=== PATIENT | female | born 1970 | race Caucasian/White ===

== ENCOUNTER 2016-08-30 16:07 | Observation (INO) | payer BC ==
[2016-08-30] MEDS ORDERED: Sodium Chloride 0.9% 10 ML Syringe FLUSH PRN (16:15)
[2016-08-30] MEDS ORDERED: Acetaminophen 325 MG Tab PO PRN (16:15)
--- NOTE | 2016-08-30 16:30 | PCM.HP ---
H&P History of Present Illness - General Date of Service: 08/30/16 Admit Problem/Dx: Admission Diagnosis/Problem Admission Diagnosis/Problem Anemia due to blood loss Symptomatic anemia due to heavy menses Dyspnea Hypotension Source of Information: Patient History Limitations: Reports: No limitations - History of Present Illness Initial Comments - Free Text/Narative: Patient presents to the clinic after having issues with her menses for the last two weeks. Sees a provider at [facility] who recently changed her BCP to Nortrel. Patient states since starting on the pills the periods have been heavy , changing a pad every 1 to 2 hours with clots. On 08/27/2016 patient had significant bleeding with passing multiple clots. Having shortness of breath upon exertion, dizziness, and palpitations. Hgb 8.1 at the clinic. Baseline hgb 12.6 Onset of Symptoms: Reports: gradual Improves with: Reports: Rest Worsens with: Reports: Movement Associated Symptoms: Reports: shortness of breath, weakness - Related Data Allergies/Adverse Reactions: Allergies Allergy/AdvReac Type Severity Reaction Status Date / Time No Known Allergies Allergy Verified 08/30/15 18:46 Home Medications: Home Meds Levothyroxine Sodium [Levothyroxine Sodium] 1 tab PO DAILY 08/30/15 [History] Non-Formulary Medication [NF Drug] 1 tab PO DAILY 08/30/15 [History] Past Medical History Other Gastrointestinal History: s/p appy secondary to rupture Other Genitourinary History: tubal ligation. , one miscarriage. No history of abnormal pap smears Endocrine/Metabolic History: Reports: Hypothyroidism - Past Surgical History Female Surgical History: Reports: Tubal ligation Social & Family History - Family History Other OBGYN Family History: No family history of uterine, ovarian or cervical cancer - Tobacco Use Smoking Status *Q: Never Smoker H&P Review of Systems - Review of Systems: Review Of Systems: See Below General: Reports: weakness HEENT: Reports: no symptoms Pulmonary: Reports: Shortness of Breath Cardiovascular: Reports: palpitations, dyspnea on exertion Gastrointestinal: Reports: No symptoms Genitourinary: Reports: abnormal menses Musculoskeletal: Reports: no symptoms Skin: Reports: no symptoms Psychiatric: Reports: no symptoms Neurological: Reports: No Symptoms Hematologic/Lymphatic: Reports: anemia Immunologic: Reports: no symptoms Exam - Exam Exam: See Below - Vital Signs Weight: 180 lb - Exam General: alert, oriented, cooperative HEENT: Conjunctiva clear, EACs clear, EOMI, Hearing intact, Mucosa moist & pink , Nares patent, Posterior pharynx clear Neck: supple, trachea midline, 2+ carotid pulse wo bruit Lungs: Clear to auscultation, Normal respiratory effort Cardiovascular: regular rate, regular rhythm, normal S1, normal S2 (occasional irregular beat), systolic murmur Abdomen: Normal Bowel Sounds, Soft Extremities: normal inspection Peripheral Pulses: 2+: dorsalis pedis (L), dorsalis pedis (R) Skin: warm, dry, intact Neurological: cranial nerves intact, reflexes equal bilateral Neuro Extensive - Mental Status: alert, oriented x3, normal mood/affect, normal cognition, memory intact Psychiatric: alert, normal affect, normal mood *Q Meaningful Use (ADM) - VTE *Q VTE Criteria *Q: - Stroke *Q Stroke Criteria *Q: - AMI *Q AMI Criteria *Q: - Problem List (1) Menstrual bleeding problem SNOMED Code(s): 521416563, 690241290 ICD Code: N93.9 - ABNORMAL UTERINE AND VAGINAL BLEEDING, UNSPECIFIED Status : Acute Priority: High (2) Anemia SNOMED Code(s): 513946515 ICD Code: D64.9 - ANEMIA, UNSPECIFIED Status: Acute Qualifiers: Anemia type: unspecified type Qualified Code(s): D64.9 - Anemia, unspecified (3) Hypotension SNOMED Code(s): 88367366 ICD Code: I95.9 - HYPOTENSION, UNSPECIFIED Status: Acute Qualifiers: Hypotension type: other hypotension type Qualified Code(s): I95.89 - Other hypotension Problem List Initiated/Reviewed/Updated: Yes Orders Last 24hrs: Active Orders 24 hr Category Date Time Status Patient Status [ADT] Routine ADT 08/30/16 16:15 Ordered Cardiac Monitoring [RC] CONTINUOUS Care 08/30/16 16:17 Ordered Intake and Output [RC] QSHIFT Care 08/30/16 16:17 Ordered May Shower [RC] ASDIRECTED Care 08/30/16 16:15 Ordered Oxygen Therapy [RC] PRN Care 08/30/16 16:15 Ordered Peripheral IV Care [RC] . DIRECTED Care 08/30/16 16:21 Ordered Up ad Wanda [RC] ASDIRECTED Care 08/30/16 16:15 Ordered VTE/DVT Education [RC] PER UNIT ROUTINE Care 08/30/16 16:15 Ordered Vital Signs [RC] Q4H Care 08/30/16 16:15 Ordered Regular Diet [DIET] Diet 08/30/16 Dinner Ordered Pelvis Non OB Comp [US] Routine Exams 08/31/16 09:00 Ordered CBC WITH AUTO DIFF [HEME] AM Lab 08/31/16 05:11 Ordered COMPREHENSIVE METABOLIC PN,CMP [CHEM] Routine Lab 08/31/16 05:11 Ordered COMPREHENSIVE METABOLIC PN,CMP [CHEM] Stat Lab 08/30/16 16:15 Ordered HCG QUALITATIVE,SERUM [CHEM] Stat Lab 08/30/16 16:15 Ordered RED BLOOD CELLS LP [BBK] Routine Lab 08/30/16 16:22 Ordered TSH ULTRASENSITIVE [CHEM] Routine Lab 08/30/16 16:22 Ordered TYPE AND SCREEN [BBK] Routine Lab 08/30/16 16:22 Ordered Acetaminophen [Tylenol] Med 08/30/16 16:15 Ordered 650 mg PO Q4H PRN Sodium Chloride 0.9% @ 75 MLS/HR(1000ml) Med 08/30/16 16:30 Ordered Sodium Chloride 0.9% [Normal Saline] 1,000 ml IV ASDIRECTED Sodium Chloride 0.9% [Saline Flush] Med 08/30/16 16:15 Ordered 10 ml FLUSH ASDIRECTED PRN Peripheral IV Insertion Adult [OM.PC] Routine Oth 08/30/16 16:15 Ordered Saline Lock Insert [OM.PC] Routine Oth 08/30/16 16:15 Ordered Resuscitation Status Routine Resus Stat 08/30/16 16:15 Ordered Medication Orders Acetaminophen (Tylenol) 650 mg PO Q4H PRN PRN Reason: Pain (Mild 1-3)/fever Sodium Chloride (Normal Saline) 1,000 mls @ 75 mls/hr IV ASDIRECTED JI Sodium Chloride (Saline Flush) 10 ml FLUSH ASDIRECTED PRN PRN Reason: Keep Vein Open Assessment/Plan Comment:: 08/29/2016 Patient is admitted for blood transfusion for treatment of symptomatic anemia due to acute blood loss from heavy menstrual bleeding. Will start oral iron and have patient take two of her BCP to help with the bleeding. Pelvic ultrasound in the morning. Recheck hgb in the morning. Check TSH and Hcg level, patient is s/p tubal ligation. Patient is short of breath, dizzy and having palpitations. Denies chest pain. Discussed with Dr Lees. Patient agrees to the plan of care , hospitalization and blood transfusion. Senia Price,ASSOCIATE CONSULTING ENGINEER
[2016-08-30 17:08] LABS: CHLORIDE,CL 102 mmol/L (98-107); SODIUM,NA 138 mmol/L (136-145)
[2016-08-30] MEDS: Ferrous Sulfate 325 MG Tab PO SCH (17:21)
[2016-08-30] MEDS: NORTREL PO SCH (17:21)
[2016-08-30] MEDS: Sodium Chloride 0.9% 1,000 ML IV SCH (17:22)
[2016-08-31] MEDS: Ferrous Sulfate 325 MG Tab PO SCH (06:36)
[2016-08-31] MEDS: NORTREL PO SCH (07:54)
[2016-08-31 07:58] LABS: CHLORIDE,CL 105 mmol/L (98-107); SODIUM,NA 139 mmol/L (136-145)
[2016-08-31] MEDS ORDERED: Levothyroxine 150 MCG Tab PO SCH (08:00)
[2016-08-31 08:30] VITALS: BP 121/64
[2016-08-31] MEDS: Sodium Chloride 0.9% 1,000 ML IV SCH (11:07)
--- NOTE | 2016-08-31 12:12 | PCM.PN ---
- General Info Date of Service: 08/31/16 Admission Dx/Problem (Free Text): Admission Diagnosis/Problem Admission Diagnosis/Problem Anemia due to blood loss Symptomatic anemia due to heavy menses Dyspnea Hypotension Functional Status: Reports: pain controlled - Review of Systems General: Reports: No Symptoms HEENT: Reports: no symptoms Pulmonary: Reports: no symptoms Cardiovascular: Reports: No Symptoms Gastrointestinal: Reports: No symptoms Genitourinary: Reports: no symptoms Musculoskeletal: Reports: no symptoms Skin: Reports: no symptoms Neurological: Reports: No Symptoms Psychiatric: Reports: no symptoms - Patient Data Vitals - most recent: Last Vital Signs Temp 98.4 F 08/31/16 08:00 Pulse 83 08/31/16 08:00 Resp 17 08/31/16 08:00 BP 121/64 08/31/16 08:00 Pulse Ox 99 08/31/16 08:00 Weight - most recent: 180 lb 0.013 oz I&O - last 24 hours: Intake & Output 08/30/16 08/31/16 08/31/16 22:59 06:59 14:59 Intake Total 987 873 1731 Output Total 0 Balance 789 557 6969 Lab Results last 24 hrs: Laboratory Results - last 24 hr 08/30/16 08/30/16 08/30/16 Range/Units 16:35 16:35 16:35 WBC (4.0-10.2) K/uL RBC (3.77-5.09) M/uL Hgb (11.7-15.5) g/dL Hct (34.0-46.0) % MCV (84.0-98.0) fL MCH (28.2-33.3) pg MCHC (31.7-36.0) g/dL RDW (11.2-14.1) % Plt Count (150-350) K/uL Neut % (Auto) (45.0-80.0) % Lymph % (Auto) (10.0-50.0) % Lyman % (Auto) (2.0-14.0) % Eos % (Auto) (0.0-5.0) % Baso % (Auto) (0.0-2.0) % Neut # (Auto) (1.40-7.00) K/uL Lymph # (Auto) (0.50-3.50) K/uL Lyman # (Auto) (0.00-1.00) K/uL Eos # (Auto) (0.00-0.50) K/uL Baso # (Auto) (0.00-0.20) K/uL Sodium 138 (136-145) mmol/L Potassium 3.4 L (3.5-5.1) mmol/L Chloride 102 (98-107) mmol/L Carbon Dioxide 23.3 (21.0-32.0) mmol/L BUN 11 (7-18) mg/dL Creatinine 0.86 (0.51-1.17) mg/dL Est Cr Clr Drug Dosing 65.34 mL/min Estimated GFR (MDRD) > 60 mL/min Glucose 109 H (74-106) mg/dL Calcium 8.6 (8.5-10.1) mg/dL Total Bilirubin 0.2 (0.2-1.0) mg/dL AST 25 (15-37) U/L ALT 33 (12-78) U/L Alkaline Phosphatase 61 (46-116) IU/L Total Protein 7.7 (6.4-8.2) g/dL Albumin 3.6 (3.4-5.0) g/dL TSH, Ultra Sensitive 3.188 (0.358-3.740) mIU/mL HCG, Qual Negative (NEGATIVE) Blood Type Gel Antibody Screen Crossmatch 08/30/16 08/31/16 08/31/16 Range/Units 16:35 06:35 06:35 WBC 8.1 (4.0-10.2) K/uL RBC 3.29 L (3.77-5.09) M/uL Hgb 10.0 L D (11.7-15.5) g/dL Hct 30.5 L (34.0-46.0) % MCV 92.7 (84.0-98.0) fL MCH 30.4 (28.2-33.3) pg MCHC 32.8 (31.7-36.0) g/dL RDW 14.9 H (11.2-14.1) % Plt Count 261 (150-350) K/uL Neut % (Auto) 64.9 (45.0-80.0) % Lymph % (Auto) 25.3 (10.0-50.0) % Lyman % (Auto) 7.1 (2.0-14.0) % Eos % (Auto) 2.1 (0.0-5.0) % Baso % (Auto) 0.6 (0.0-2.0) % Neut # (Auto) 5.28 (1.40-7.00) K/uL Lymph # (Auto) 2.06 (0.50-3.50) K/uL Lyman # (Auto) 0.58 (0.00-1.00) K/uL Eos # (Auto) 0.17 (0.00-0.50) K/uL Baso # (Auto) 0.05 (0.00-0.20) K/uL Sodium 139 (136-145) mmol/L Potassium 3.9 (3.5-5.1) mmol/L Chloride 105 (98-107) mmol/L Carbon Dioxide 26.3 (21.0-32.0) mmol/L BUN 7 (7-18) mg/dL Creatinine 0.84 (0.51-1.17) mg/dL Est Cr Clr Drug Dosing 66.89 mL/min Estimated GFR (MDRD) > 60 mL/min Glucose 111 H (74-106) mg/dL Calcium 8.0 L (8.5-10.1) mg/dL Total Bilirubin 0.3 (0.2-1.0) mg/dL AST 22 (15-37) U/L ALT 30 (12-78) U/L Alkaline Phosphatase 54 (46-116) IU/L Total Protein 6.8 (6.4-8.2) g/dL Albumin 3.0 L (3.4-5.0) g/dL TSH, Ultra Sensitive (0.358-3.740) mIU/mL HCG, Qual (NEGATIVE) Blood Type A POSITIVE Gel Antibody Screen Negative Crossmatch See Detail Med Orders - Current: Current Medications Acetaminophen (Tylenol) 650 mg PO Q4H PRN PRN Reason: Pain (Mild 1-3)/fever Ferrous Sulfate (Ferrous Sulfate) 325 mg PO BIDMEALS [facility] Last Admin: 08/31/16 06:36 Dose: 325 mg Levothyroxine Sodium (Levothyroxine) 150 mcg PO DAILY [facility] Last Admin: 08/31/16 07:54 Dose: 150 mcg Discontinued Medications Sodium Chloride (Normal Saline) 1,000 mls @ 75 mls/hr IV ASDIRECTED JI Last Admin: 08/31/16 11:07 Dose: 75 mls/hr Nortrel 1/35 Tablets 2 each PO DAILY JI Stop: 08/31/16 08:01 Last Admin: 08/31/16 07:54 Dose: 2 each Sodium Chloride (Saline Flush) 10 ml FLUSH ASDIRECTED PRN PRN Reason: Keep Vein Open - Exam General: alert, oriented HEENT: Pupils equal, Pupils reactive, EOMI, Mucous membr. moist/pink Neck: supple Lungs: Clear to auscultation, Normal respiratory effort Cardiovascular: Regular Rate, Regular Rhythm Abdomen: bowel sounds present, soft, no tenderness, no distension (Female) Exam: Deferred (see U/S report) Back Exam: normal inspection, full range of motion Extremities: no edema Skin: warm, dry, intact Neurological: no new focal deficit Psy/Mental Status: alert, normal affect, normal mood - Problem List Review Problem List Initiated/Reviewed/Updated: Yes - My Orders Last 24 Hours: My Active Orders 08/31/16 12:08 Cardiac Monitoring Discontinue [RC] Click To Edit Discontinue Saline Lock [Peripheral IV Discontinue] [OM.PC] Routine - Plan Plan:: 08/29/2016 Patient is admitted for blood transfusion for treatment of symptomatic anemia due to acute blood loss from heavy menstrual bleeding. Will start oral iron and have patient take two of her BCP to help with the bleeding. Pelvic ultrasound in the morning. Recheck hgb in the morning. Check TSH and Hcg level, patient is s/p tubal ligation. Patient is short of breath, dizzy and having palpitations. Denies chest pain. Discussed with Dr Lees. Patient agrees to the plan of care , hospitalization and blood transfusion. Senia Price,RODGER 08/31/16 Nabeel Pina MD Vaginal bleeding slowed. Feels good. Stable for discharge to home.
--- NOTE | 2016-08-31 14:52 | PCM.DCSUM1 ---
Discharge Summary - Discharge Data Discharge Date: 08/31/16 Discharge Disposition: Home, Self-Care 01 Condition: Good - Patient Instructions Diet: Regular Diet as Tolerated Driving: May Drive Today Showering/Bathing: August Shower - Discharge Plan Prescriptions/Med Rec: Ferrous Sulfate 325 mg PO BIDMEALS #180 tablet Home Medications: Home Meds Levothyroxine Sodium 1 tab PO DAILY 08/30/15 [History] Ferrous Sulfate 325 mg PO BIDMEALS #180 tablet 08/31/16 [Rx] Non-Formulary Medication [NF Drug] 2 tab PO DAILY #0 08/31/16 [Rx] Patient Handouts: Anemia, Nonspecific, Blood Transfusion Referrals: Senia Price NP [Primary Care Provider] - - Discharge Summary/Plan Comment DC Time >30 min.: No Discharge Summary/Plan Comment: [facility] will call you with follow-up. - Patient Data Vitals - Most Recent: Last Vital Signs Temp 98.4 F 08/31/16 08:00 Pulse 83 08/31/16 08:00 Resp 17 08/31/16 08:00 BP 121/64 08/31/16 08:00 Pulse Ox 99 08/31/16 08:00 Weight - Most Recent: 180 lb 0.013 oz I&O - Last 24 hours: Intake & Output 08/30/16 08/31/16 08/31/16 22:59 06:59 14:59 Intake Total 652 270 9909 Output Total 0 Balance 526 779 1500 Lab Results - Last 24 hrs: Laboratory Results - last 24 hr 08/30/16 08/30/16 08/30/16 Range/Units 16:35 16:35 16:35 WBC (4.0-10.2) K/uL RBC (3.77-5.09) M/uL Hgb (11.7-15.5) g/dL Hct (34.0-46.0) % MCV (84.0-98.0) fL MCH (28.2-33.3) pg MCHC (31.7-36.0) g/dL RDW (11.2-14.1) % Plt Count (150-350) K/uL Neut % (Auto) (45.0-80.0) % Lymph % (Auto) (10.0-50.0) % Mclean % (Auto) (2.0-14.0) % Eos % (Auto) (0.0-5.0) % Baso % (Auto) (0.0-2.0) % Neut # (Auto) (1.40-7.00) K/uL Lymph # (Auto) (0.50-3.50) K/uL Mclean # (Auto) (0.00-1.00) K/uL Eos # (Auto) (0.00-0.50) K/uL Baso # (Auto) (0.00-0.20) K/uL Sodium 138 (136-145) mmol/L Potassium 3.4 L (3.5-5.1) mmol/L Chloride 102 (98-107) mmol/L Carbon Dioxide 23.3 (21.0-32.0) mmol/L BUN 11 (7-18) mg/dL Creatinine 0.86 (0.51-1.17) mg/dL Est Cr Clr Drug Dosing 65.34 mL/min Estimated GFR (MDRD) > 60 mL/min Glucose 109 H (74-106) mg/dL Calcium 8.6 (8.5-10.1) mg/dL Total Bilirubin 0.2 (0.2-1.0) mg/dL AST 25 (15-37) U/L ALT 33 (12-78) U/L Alkaline Phosphatase 61 (46-116) IU/L Total Protein 7.7 (6.4-8.2) g/dL Albumin 3.6 (3.4-5.0) g/dL TSH, Ultra Sensitive 3.188 (0.358-3.740) mIU/mL HCG, Qual Negative (NEGATIVE) Blood Type Gel Antibody Screen Crossmatch 08/30/16 08/31/16 08/31/16 Range/Units 16:35 06:35 06:35 WBC 8.1 (4.0-10.2) K/uL RBC 3.29 L (3.77-5.09) M/uL Hgb 10.0 L D (11.7-15.5) g/dL Hct 30.5 L (34.0-46.0) % MCV 92.7 (84.0-98.0) fL MCH 30.4 (28.2-33.3) pg MCHC 32.8 (31.7-36.0) g/dL RDW 14.9 H (11.2-14.1) % Plt Count 261 (150-350) K/uL Neut % (Auto) 64.9 (45.0-80.0) % Lymph % (Auto) 25.3 (10.0-50.0) % Mclean % (Auto) 7.1 (2.0-14.0) % Eos % (Auto) 2.1 (0.0-5.0) % Baso % (Auto) 0.6 (0.0-2.0) % Neut # (Auto) 5.28 (1.40-7.00) K/uL Lymph # (Auto) 2.06 (0.50-3.50) K/uL Mclean # (Auto) 0.58 (0.00-1.00) K/uL Eos # (Auto) 0.17 (0.00-0.50) K/uL Baso # (Auto) 0.05 (0.00-0.20) K/uL Sodium 139 (136-145) mmol/L Potassium 3.9 (3.5-5.1) mmol/L Chloride 105 (98-107) mmol/L Carbon Dioxide 26.3 (21.0-32.0) mmol/L BUN 7 (7-18) mg/dL Creatinine 0.84 (0.51-1.17) mg/dL Est Cr Clr Drug Dosing 66.89 mL/min Estimated GFR (MDRD) > 60 mL/min Glucose 111 H (74-106) mg/dL Calcium 8.0 L (8.5-10.1) mg/dL Total Bilirubin 0.3 (0.2-1.0) mg/dL AST 22 (15-37) U/L ALT 30 (12-78) U/L Alkaline Phosphatase 54 (46-116) IU/L Total Protein 6.8 (6.4-8.2) g/dL Albumin 3.0 L (3.4-5.0) g/dL TSH, Ultra Sensitive (0.358-3.740) mIU/mL HCG, Qual (NEGATIVE) Blood Type A POSITIVE Gel Antibody Screen Negative Crossmatch See Detail Med Orders - Current: Current Medications Discontinued Medications Acetaminophen (Tylenol) 650 mg PO Q4H PRN PRN Reason: Pain (Mild 1-3)/fever Ferrous Sulfate (Ferrous Sulfate) 325 mg PO BIDMEALS [facility] Last Admin: 08/31/16 06:36 Dose: 325 mg Sodium Chloride (Normal Saline) 1,000 mls @ 75 mls/hr IV ASDIRECTED [facility] Last Admin: 08/31/16 11:07 Dose: 75 mls/hr Levothyroxine Sodium (Levothyroxine) 150 mcg PO DAILY [facility] Last Admin: 08/31/16 07:54 Dose: 150 mcg Nortrel 35 Tablets 2 each PO DAILY [facility] Stop: 08/31/16 08:01 Last Admin: 08/31/16 07:54 Dose: 2 each Sodium Chloride (Saline Flush) 10 ml FLUSH ASDIRECTED PRN PRN Reason: Keep Vein Open *Q Meaningful Use (DIS) - VTE *Q VTE Criteria *Q: - Stroke *Q Stroke Criteria *Q: - AMI *Q AMI Criteria *Q:
== END 2016-08-31 13:10 | disposition home or self-care (01) ==
LOC: LL.MS 16:27
PROVIDERS: ADMIT Nurse Practitioner Family; ATTEND Family Medicine
DX: N93.9 Abnormal uterine and vaginal bleeding, unspecified (principal); D64.9 Anemia, unspecified; I95.89 Other hypotension; E03.9 Hypothyroidism, unspecified; Z98.51 Tubal ligation status; Z90.49 Acquired absence of other specified parts of digestive tract; Z79.899 Other long term (current) drug therapy
CPT/HCPCS: 36415; 36430; 76830; 76856; 80053; 84443; 84703; 85025; 86850; 86900; 86901; 86920; 86922; 96360; 96361; A9270; G0378; J7030; P9016

== ENCOUNTER → 2019-03-18 | Outpatient (CLI) | payer OTHER | LOC: LL.MRI 13:56 | PROVIDERS: ATTEND Physician Assistant | DX: M25.572 Pain in left ankle and joints of left foot (principal); S82.832A Other fracture of upper and lower end of left fibula, initial encounter for closed fracture; X58.XXXA Exposure to other specified factors, initial encounter | CPT/HCPCS: 73721-LT ==

== ENCOUNTER 2024-01-09 06:44 | Emergency (ER) | payer BC, OTHER ==
[2024-01-09 07:11] LABS: BASOPHILS ABSOLUTE AUTO 0.02 K/uL (0.00-0.20); BASOPHILS PERCENT AUTO 0.2 % (0.0-2.0); EOSINOPHILS ABSOLUTE AUTO 0.17 K/uL (0.00-0.50); EOSINOPHILS PERCENT AUTO 1.9 % (0.0-5.0); HEMATOCRIT 41.6 % (34.0-46.0); HEMOGLOBIN 13.8 g/dL (11.7-15.5); LYMPHOCYTES ABSOLUTE AUTO 1.33 K/uL (0.50-3.50); LYMPHOCYTES PERCENT AUTO 14.8 % (10.0-50.0); MEAN CORPUSCULAR HEMOGLOBIN 31.7 pg (28.2-33.3); MEAN CORPUSCULAR HGB CONC 33.2 g/dL (31.7-36.0); MEAN CORPUSCULAR VOLUME 95.6 fL (84.0-98.0); MONOCYTES PERCENT AUTO 8.9 % (2.0-14.0); NEUTROPHILS ABSOLUTE AUTO 6.66 K/uL (1.40-7.00); NEUTROPHILS PERCENT AUTO 74.2 % (45.0-80.0); PLATELET COUNT,PLT 241 K/uL (150-350); RED BLOOD CELL COUNT 4.35 M/uL (3.77-5.09); RED CELL DISTRIBUTION WIDTH 12.7 % (11.2-14.1)
[2024-01-09] MEDS: Orphenadrine 60 MG/2 ML Inj IV ONE (07:25)
[2024-01-09] MEDS ORDERED: Naloxone 0.4 MG/ML SDV IVPUSH PRN (07:25)
[2024-01-09] MEDS: fentaNYL 50 MCG/ML SDV IVPUSH ONE (07:27)
[2024-01-09] MEDS: Sodium Chloride 0.9% 1,000 ML IV ONE (07:36)
[2024-01-09 07:46] VITALS: BP 130/66; PULSE 47
[2024-01-09] MEDS ORDERED: Sodium Chloride 0.9% 10 ML Syringe FLUSH PRN (07:58)
[2024-01-09 08:00] LABS: ALANINE AMINOTRANSFERASE,ALT 18 U/L (12-78); ALBUMIN 3.9 g/dL (3.4-5.0); ALKALINE PHOSPHATASE 72 IU/L (46-116); ANION GAP 5.6 meq/L (7-15); ASPARTATE AMNIOTRANSFERASE,AST 11 U/L (15-37); BILIRUBIN TOTAL 0.2 mg/dL (0.2-1.0); BLOOD UREA NITROGEN,BUN 12 mg/dL (7-18); CALCIUM 9.7 mg/dL (8.5-10.1); CARBON DIOXIDE,CO2 29.4 mmol/L (21.0-32.0); CHLORIDE,CL 101 mmol/L (98-107); ESTIMATED GFR 60 mL/min (>=60); GLUCOSE RANDOM 115 mg/dL (70-99); MAGNESIUM 2.1 mg/dL (1.8-2.4); POTASSIUM,K 4.3 mmol/L (3.5-5.1); PROTEIN TOTAL,TP 7.9 g/dL (6.4-8.2); SODIUM,NA 136 mmol/L (136-145)
[2024-01-09] MEDS: Ondansetron 4 MG/2 ML SDV IVPUSH ONE (09:45)
[2024-01-09] MEDS: Cyclobenzaprine 10 MG Tab PO ONE (10:59)
== END 2024-01-09 14:50 | disposition home or self-care (01) ==
LOC: LL.ED 06:44
DX: M62.830 Muscle spasm of back (principal); E03.9 Hypothyroidism, unspecified; Z79.890 Hormone replacement therapy
CPT/HCPCS: 36415; 74176; 80053; 83735; 85025; 96361; 96374; 96375; 99284; 99284-25; A9270-GY; J2360; J2405; J3010; J3360; J7030